=== PATIENT | female | born 1985 | race Caucasian/White ===

== ENCOUNTER 2022-07-19 07:53 | Outpatient (CLI) | payer BC | END 2022-07-19 07:54 | disposition home or self-care (01) | LOC: LAB.S 07:53 | PROVIDERS: ATTEND Preventive Medicine Public Health & General Preventive Medicine | DX: E78.5 Hyperlipidemia, unspecified (principal); R53.82 Chronic fatigue, unspecified; E55.9 Vitamin D deficiency, unspecified; E27.9 Disorder of adrenal gland, unspecified; E16.2 Hypoglycemia, unspecified; D68.9 Coagulation defect, unspecified; E78.00 Pure hypercholesterolemia, unspecified; K90.0 Celiac disease; E61.0 Copper deficiency; E03.9 Hypothyroidism, unspecified | CPT/HCPCS: 36415; 80053; 80061; 81599; 82306; 82390; 82533; 82627; 82652; 82670; 82672; 82728; 83090; 83540; 83721; 84140; 84439; 84443; 84466; 84481; 85025; 85379; 85384; 86038; 86141 ==